=== PATIENT | male | born 1945 | race Caucasian/White ===

== ENCOUNTER 2018-08-25 14:16 | Inpatient (IN) | payer MEDICARE, OTHER ==
[2018-08-25 15:26] LABS: ADD MAN DIFF? NO
[2018-08-25 15:32] LABS: WHITE BLOOD COUNT 11.6 10^3/ul (4.8-10.8)
[2018-08-25 15:32] LABS: ABNORMAL IP MESSAGE 1; BASOPHIL # 0.1 10^3/ul (0.0-0.1); BASOPHILS % 0.7 % (0.0-2.0); EOSINOPHILS # 0.1 10^3/ul (0.0-0.5); EOSINOPHILS % 0.8 % (0.0-7.0); HEMATOCRIT 32.1 % (42.0-52.0); HEMOGLOBIN 10.8 g/dl (14.0-18.0); LYMPHOCYTES # 1.3 10^3/ul (0.8-2.9); MEAN CORPUSCULAR HEMOGLOBIN 36.1 pg (29.0-33.0); MEAN CORPUSCULAR HGB CONC 33.6 g/dl (32.0-37.0); MEAN CORPUSCULAR VOLUME 107.4 fl (82.0-101.0); MEAN PLATELET VOLUME 10.7 fl (7.4-10.4); MONOCYTE # 1.6 10^3/ul (0.3-0.9); MONOCYTES % 13.4 % (0.0-11.0); NEUTROPHIL # 8.5 10^3/ul (1.6-7.5); NEUTROPHILS % 73.6 % (39.0-77.0); PLATELET COUNT 170 10^3/UL (140-415); POSITIVE DIFF @See below; RED BLOOD COUNT 2.99 10^6/ul (4.70-6.10); RED CELL DISTRIBUTION WIDTH 12.7 % (11.5-14.5)
[2018-08-25 15:45] LABS: ADD UMIC YES; UR ASCORBIC ACID NEGATIVE (NEGATIVE); UR BACTERIA FEW /HPF (NONE SEEN); UR BILIRUBIN (Dip) NEGATIVE (NEGATIVE); UR BLOOD (Dip) 1+ mg/dL (NEGATIVE); UR CLARITY TURBID (CLEAR); UR COLOR YELLOW (YELLOW); UR GLUCOSE (Dip) NEGATIVE (NEGATIVE); UR KETONES (Dip) TRACE mg/dL (NEGATIVE); UR LEUKOCYTE ESTERASE (Dip) 3+ Leu/ul (NEGATIVE); UR NITRITE (Dip) NEGATIVE (NEGATIVE); UR NONSQUAMOUS EPITHELIAL CELL 5 /HPF (NONE SEEN); UR RBC 34 /HPF (0-5); UR SPECIFIC GRAVITY (Dip) 1.017 (1.003-1.030); UR TOTAL PROTEIN (Dip) 2+ mg/dl (NEGATIVE); UR UROBILINOGEN (Dip) NEGATIVE (NEGATIVE); UR WBC > 182 /HPF (0-5)
[2018-08-25] MEDS: SOD CHLORIDE 0.9% 1,000 ML IV ×2 (15:49→20:28)
[2018-08-25 15:53] LABS: ALANINE AMINOTRANSFERASE 48 IU/L (13-69); ALBUMIN 4.7 g/dl (3.3-4.9); ALBUMIN/GLOBULIN RATIO 1.51; ALKALINE PHOSPHATASE 116 IU/L (42-121); ANION GAP 13 (5-13); ASPARTATE AMINO TRANSFERASE 52 IU/L (15-46); BLOOD UREA NITROGEN 48 mg/dl (7-20); CALCIUM 9.6 mg/dl (8.4-10.2); CARBON DIOXIDE 19 mmol/L (21-31); CHLORIDE 107 mmol/L (97-110); CREATININE 4.91 mg/dl (0.61-1.24); GLUCOSE 118 mg/dl (70-220); LIPASE 294 U/L (23-300); SODIUM 139 mmol/L (135-144); TOTAL PROTEIN 7.8 g/dl (6.1-8.1)
[2018-08-25 15:54] LABS: CREATINE KINASE 83 IU/L (23-200)
[2018-08-25 16:08] LABS: POTASSIUM 6.7 mmol/L (3.5-5.1)
[2018-08-25] MEDS ORDERED: ACETAMINOPHEN 325 MG TAB PO ×2 (16:30)
[2018-08-25] MEDS ORDERED: NACL 0.9% 3 ML SYG IV (16:30)
[2018-08-25] MEDS ORDERED: ONDANSETRON 4 MG INJ IV ×2 (16:30)
[2018-08-25] MEDS ORDERED: HYDROCODONE/APAP (5/325) TAB PO (16:30)
[2018-08-25] MEDS: NA BICARBONATE 8.4% 50 ML SYG IV (16:46)
[2018-08-25] MEDS: NA POLYST SULFON 15 GM/60 ML BTL PO (16:56)
[2018-08-25] MEDS: AZTREONAM 1 GM/NS (PMX) 50 ML IVPB (16:58)
[2018-08-25] MEDS: ALBUTEROL 0.5% (NEB) 2.5 MG/0.5 ML AMP INH (17:20)
[2018-08-25 17:48] LABS: RETICULOCYTE COUNT # 0.059 X10^6 (0.020-0.110)
[2018-08-25 17:48] LABS: RETICULOCYTE RBC 2.94
[2018-08-25 17:57] LABS: IRON 194 ug/dl (35-150)
[2018-08-25 18:06] LABS: % IRON SATURATION 71 % SAT (22-52); TOTAL IRON BINDING CAPACITY 273 ug/dl (241-421)
[2018-08-25] MEDS: METOPROLOL 25 MG TAB PO (20:26)
[2018-08-25] MEDS: CEFEPIME 1GM/50 ML (PMX) 50 ML IVPB (20:27)
[2018-08-25] MEDS: PATIENT'S OWN MEDICATION PO (21:00)
[2018-08-25 21:03] LABS: LACTIC ACID 1.6 mmol/L (0.5-2.0)
[2018-08-25 21:04] LABS: ANION GAP 15 (5-13); BLOOD UREA NITROGEN 49 mg/dl (7-20); CALCIUM 9.3 mg/dl (8.4-10.2); CARBON DIOXIDE 20 mmol/L (21-31); CHLORIDE 104 mmol/L (97-110); GLUCOSE 124 mg/dl (70-220); POTASSIUM 5.3 mmol/L (3.5-5.1); SODIUM 139 mmol/L (135-144)
[2018-08-25] MEDS: hydrALAzine 20 MG INJ IV (22:01)
[2018-08-25 22:54] LABS: SODIUM,URINE RANDOM 127 mmol/L (30-90)
[2018-08-25 22:56] LABS: CREATININE,URINE RANDOM 65.44 mg/dl (20-370); PROTEIN/CREAT RATIO 1.06 RATIO
[2018-08-26] MEDS: METOPROLOL 50 MG TAB PO (00:45)
[2018-08-26] MEDS: DILTIAZEM (CD) 240 MG CAP PO ×2 (00:45→08:23)
[2018-08-26] MEDS: NA POLYST SULFON 15 GM/60 ML BTL PO (00:46)
[2018-08-26] MEDS: SOD CHLORIDE 0.9% 1,000 ML IV ×2 (02:30→06:14)
[2018-08-26 06:13] LABS: ADD MAN DIFF? NO
[2018-08-26 06:38] LABS: HEMOGLOBIN A1C 5.1 % (0-5.9)
[2018-08-26 06:46] LABS: WHITE BLOOD COUNT 8.1 10^3/ul (4.8-10.8)
[2018-08-26 06:46] LABS: BASOPHIL # 0.1 10^3/ul (0.0-0.1); BASOPHILS % 0.6 % (0.0-2.0); EOSINOPHILS # 0.1 10^3/ul (0.0-0.5); EOSINOPHILS % 0.6 % (0.0-7.0); HEMATOCRIT 28.1 % (42.0-52.0); HEMOGLOBIN 9.7 g/dl (14.0-18.0); LYMPHOCYTES # 0.9 10^3/ul (0.8-2.9); LYMPHOCYTES % 11.6 % (15.0-51.0); MEAN CORPUSCULAR HEMOGLOBIN 36.9 pg (29.0-33.0); MEAN CORPUSCULAR HGB CONC 34.5 g/dl (32.0-37.0); MEAN CORPUSCULAR VOLUME 106.8 fl (82.0-101.0); MEAN PLATELET VOLUME 11.3 fl (7.4-10.4); MONOCYTE # 1.2 10^3/ul (0.3-0.9); MONOCYTES % 14.9 % (0.0-11.0); NEUTROPHIL # 5.8 10^3/ul (1.6-7.5); NEUTROPHILS % 71.7 % (39.0-77.0); PLATELET COUNT 119 10^3/UL (140-415); RED BLOOD COUNT 2.63 10^6/ul (4.70-6.10); RED CELL DISTRIBUTION WIDTH 12.5 % (11.5-14.5)
[2018-08-26 06:55] LABS: INR 1.13; PROTIME 14.7 Sec (11.9-14.9); PT RATIO 1.1
[2018-08-26 06:56] LABS: PARTIAL THROMBOPLASTIN TIME 32.6 Sec (23.0-35.0)
[2018-08-26 07:01] LABS: ALANINE AMINOTRANSFERASE 38 IU/L (13-69); ALBUMIN 4.1 g/dl (3.3-4.9); ALKALINE PHOSPHATASE 89 IU/L (42-121); ANION GAP 13 (5-13); ASPARTATE AMINO TRANSFERASE 32 IU/L (15-46); BILIRUBIN,INDIRECT 0.9 mg/dl (0-1.1); BILIRUBIN,TOTAL 0.9 mg/dl (0.2-1.3); BLOOD UREA NITROGEN 44 mg/dl (7-20); CARBON DIOXIDE 21 mmol/L (21-31); CHLORIDE 107 mmol/L (97-110); CHOLESTEROL 178 mg/dl (100-200); CREATININE 3.92 mg/dl (0.61-1.24); GLUCOSE 111 mg/dl (70-220); HDL CHOLESTEROL 89 mg/dl (31-75); LDL CHOLESTEROL,CALCULATED 72 mg/dl; MAGNESIUM 1.5 mg/dl (1.7-2.5); POTASSIUM 4.8 mmol/L (3.5-5.1); SODIUM 141 mmol/L (135-144); TOTAL PROTEIN 6.5 g/dl (6.1-8.1); TRIGLYCERIDES 83 mg/dl (0-149)
[2018-08-26 07:01] LABS: PHOSPHORUS 3.1 mg/dl (2.5-4.9)
[2018-08-26 07:04] LABS: C-REACTIVE PROTEIN 2.8 mg/dl (0.0-0.9)
[2018-08-26 08:14] LABS: COLLAGEN/EPI > 272 Secs. (51-198)
[2018-08-26 08:15] LABS: COLLAGEN/ADP 127 Secs. (40-147)
[2018-08-26] MEDS: METOPROLOL 25 MG TAB PO ×2 (08:19→21:31)
[2018-08-26] MEDS: FOLIC ACID 1 MG TAB PO (08:19)
[2018-08-26] MEDS: CYANOCOBALAMIN 500 MCG TAB PO (08:19)
[2018-08-26] MEDS: AMLODIPINE 5 MG TAB PO (08:19)
[2018-08-26] MEDS: ASPIRIN (EC) 81 MG TAB PO (08:20)
[2018-08-26] MEDS ORDERED: AMLODIPINE 5 MG TAB PO (09:00)
[2018-08-26] MEDS ORDERED: hydrALAzine 20 MG INJ IV (09:00)
[2018-08-26] MEDS ORDERED: LABETALOL HCL 20MG INJ IV (09:00)
[2018-08-26] MEDS: PANTOPRAZOLE (EC) 40 MG TAB PO (09:47)
[2018-08-26] MEDS: NIFEdipine (XL) 30 MG TAB PO ×2 (11:28→21:31)
[2018-08-26] MEDS: MAGNESIUM SULFATE 3 GM in DEXTROSE 5% 100 ML IVPB (13:42)
[2018-08-26] MEDS: EPOETIN 10000 UNITS/ML (NON ESRD/NON ONCOLOGY) SC (17:16)
[2018-08-26] MEDS ORDERED: METOPROLOL 25 MG TAB PO ×2 (21:00)
[2018-08-26] MEDS: CEFEPIME 1GM/50 ML (PMX) 50 ML IVPB (21:29)
[2018-08-27] MEDS: SOD CHLORIDE 0.9% 1,000 ML IV ×2 (01:00→11:53)
[2018-08-27 05:08] LABS: ADD MAN DIFF? NO
[2018-08-27 05:09] LABS: ABNORMAL IP MESSAGE 1; BASOPHIL # 0.1 10^3/ul (0.0-0.1); BASOPHILS % 0.5 % (0.0-2.0); EOSINOPHILS # 0.1 10^3/ul (0.0-0.5); EOSINOPHILS % 0.6 % (0.0-7.0); HEMATOCRIT 27.5 % (42.0-52.0); HEMOGLOBIN 9.4 g/dl (14.0-18.0); LYMPHOCYTES % 10.2 % (15.0-51.0); MEAN CORPUSCULAR HEMOGLOBIN 36.7 pg (29.0-33.0); MEAN CORPUSCULAR HGB CONC 34.2 g/dl (32.0-37.0); MEAN CORPUSCULAR VOLUME 107.4 fl (82.0-101.0); MEAN PLATELET VOLUME 10.5 fl (7.4-10.4); MONOCYTE # 1.6 10^3/ul (0.3-0.9); MONOCYTES % 16.9 % (0.0-11.0); NEUTROPHIL # 6.7 10^3/ul (1.6-7.5); NEUTROPHILS % 70.6 % (39.0-77.0); PLATELET COUNT 117 10^3/UL (140-415); POSITIVE DIFF @See below; RED BLOOD COUNT 2.56 10^6/ul (4.70-6.10); RED CELL DISTRIBUTION WIDTH 12.7 % (11.5-14.5)
[2018-08-27 05:09] LABS: WHITE BLOOD COUNT 9.5 10^3/ul (4.8-10.8)
[2018-08-27 05:33] LABS: IRON 20 ug/dl (35-150)
[2018-08-27 05:43] LABS: % IRON SATURATION 8 % SAT (22-52); TOTAL IRON BINDING CAPACITY 246 ug/dl (241-421)
[2018-08-27 05:47] LABS: ANION GAP 14 (5-13); BLOOD UREA NITROGEN 35 mg/dl (7-20); CALCIUM 8.8 mg/dl (8.4-10.2); CARBON DIOXIDE 19 mmol/L (21-31); CHLORIDE 105 mmol/L (97-110); CREATININE 3.37 mg/dl (0.61-1.24); GLUCOSE 137 mg/dl (70-220); MAGNESIUM 2.1 mg/dl (1.7-2.5); PHOSPHORUS 2.3 mg/dl (2.5-4.9); POTASSIUM 4.4 mmol/L (3.5-5.1); SODIUM 138 mmol/L (135-144)
[2018-08-27] MEDS: PANTOPRAZOLE (EC) 40 MG TAB PO (06:09)
[2018-08-27] MEDS: CYANOCOBALAMIN 500 MCG TAB PO (08:21)
[2018-08-27] MEDS: ASPIRIN (EC) 81 MG TAB PO (08:21)
[2018-08-27] MEDS: FOLIC ACID 1 MG TAB PO (08:22)
[2018-08-27] MEDS: METOPROLOL 25 MG TAB PO ×2 (08:22→20:17)
[2018-08-27] MEDS: NIFEdipine (XL) 30 MG TAB PO ×2 (08:23→20:17)
[2018-08-27 09:33] LABS: OCCULT BLOOD STOOL POSITIVE (NEGATIVE)
[2018-08-27] MEDS: LEVOFLOXACIN 250 MG TAB PO (13:50)
[2018-08-27] MEDS: SOD FERRIC GLUC COMPLX 125 MG in SOD CHLORIDE 0.9% 100 ML IVPB (13:51)
[2018-08-28 05:30] LABS: ADD MAN DIFF? NO
[2018-08-28 05:40] LABS: WHITE BLOOD COUNT 9.6 10^3/ul (4.8-10.8)
[2018-08-28 05:40] LABS: ABNORMAL IP MESSAGE 1; BASOPHIL # 0.1 10^3/ul (0.0-0.1); BASOPHILS % 0.6 % (0.0-2.0); EOSINOPHILS # 0.1 10^3/ul (0.0-0.5); EOSINOPHILS % 1.5 % (0.0-7.0); HEMATOCRIT 27.5 % (42.0-52.0); HEMOGLOBIN 9.4 g/dl (14.0-18.0); LYMPHOCYTES # 1.4 10^3/ul (0.8-2.9); LYMPHOCYTES % 14.3 % (15.0-51.0); MEAN CORPUSCULAR HEMOGLOBIN 36.6 pg (29.0-33.0); MEAN CORPUSCULAR HGB CONC 34.2 g/dl (32.0-37.0); MONOCYTE # 2.1 10^3/ul (0.3-0.9); MONOCYTES % 21.7 % (0.0-11.0); NEUTROPHIL # 5.8 10^3/ul (1.6-7.5); NEUTROPHILS % 60.3 % (39.0-77.0); PLATELET COUNT 135 10^3/UL (140-415); POSITIVE DIFF @See below; RED BLOOD COUNT 2.57 10^6/ul (4.70-6.10); RED CELL DISTRIBUTION WIDTH 12.6 % (11.5-14.5)
[2018-08-28 06:03] LABS: ANION GAP 13 (5-13); BLOOD UREA NITROGEN 32 mg/dl (7-20); CALCIUM 8.8 mg/dl (8.4-10.2); CARBON DIOXIDE 20 mmol/L (21-31); CHLORIDE 103 mmol/L (97-110); CREATININE 2.86 mg/dl (0.61-1.24); GLUCOSE 108 mg/dl (70-220); MAGNESIUM 1.9 mg/dl (1.7-2.5); PHOSPHORUS 2.5 mg/dl (2.5-4.9); POTASSIUM 4.7 mmol/L (3.5-5.1); SODIUM 136 mmol/L (135-144)
[2018-08-28] MEDS: PANTOPRAZOLE (EC) 40 MG TAB PO (06:10)
[2018-08-28 06:36] LABS: PROSTATE SPECIFIC ANTIGEN 0.9 ng/ml (0.0-4.0)
[2018-08-28] MEDS: SOD CHLORIDE 0.9% 1,000 ML IV (08:43)
[2018-08-28] MEDS: FOLIC ACID 1 MG TAB PO (08:43)
[2018-08-28] MEDS: CYANOCOBALAMIN 500 MCG TAB PO (08:43)
[2018-08-28] MEDS: METOPROLOL 25 MG TAB PO (08:44)
[2018-08-28] MEDS: NIFEdipine (XL) 60 MG TAB PO (08:44)
[2018-08-28] MEDS: ASPIRIN (EC) 81 MG TAB PO (08:45)
[2018-08-28 12:12] LABS: ANA SCREEN NEGATIVE (NEGATIVE)
[2018-08-30 13:36] LABS: ANCA SCREEN NEGATIVE (NEGATIVE); MYELOPEROXIDASE ANTIBODY <1.0 AI; PROTEINASE-3 ANTIBODY <1.0 AI
== END 2018-08-28 12:06 | disposition home or self-care (01) | DRG 683 ==
LOC: E/R 14:16 → 6WM 16:26
DX: N17.9 Acute kidney failure, unspecified (principal); N39.0 Urinary tract infection, site not specified; D50.9 Iron deficiency anemia, unspecified; I12.9 Hypertensive chronic kidney disease with stage 1 through stage 4 chronic kidney disease, or unspecified chronic kidney disease; N18.9 Chronic kidney disease, unspecified; D63.1 Anemia in chronic kidney disease; E87.5 Hyperkalemia; Z79.82 Long term (current) use of aspirin; Z88.0 Allergy status to penicillin; Z87.891 Personal history of nicotine dependence
CPT/HCPCS: 36415; 76700; 80048; 80053; 80061; 81001; 81003; 82270; 82550; 82570; 82607; 82728; 83036; 83540; 83605; 83690; 83735; 84100; 84153; 84154; 84300; 84443; 85025; 85045; 85576; 85610; 85651; 85730; 86021; 86038; 86140; 86320; 86325; 87040; 87086; 89190; 93005; 93976; 94664; 99291-25

== ENCOUNTER 2019-05-07 12:16 | Inpatient (IN) | payer MEDICARE, OTHER ==
[2019-05-07 16:05] LABS: ABNORMAL IP MESSAGE 1; HEMATOCRIT 28.9 % (42.0-52.0); HEMOGLOBIN 8.9 g/dl (14.0-18.0); MEAN CORPUSCULAR HEMOGLOBIN 33.2 pg (29.0-33.0); MEAN CORPUSCULAR HGB CONC 30.8 g/dl (32.0-37.0); MEAN CORPUSCULAR VOLUME 107.8 fl (82.0-101.0); MEAN PLATELET VOLUME 10.5 fl (7.4-10.4); NUCLEATED RED BLOOD CELLS% 1.1 /100WBC (0.0-0.0); PLATELET COUNT 194 10^3/UL (140-415); POSITIVE DIFF @See below; RED BLOOD COUNT 2.68 10^6/ul (4.70-6.10); RED CELL DISTRIBUTION WIDTH 14.6 % (11.5-14.5)
[2019-05-07 16:05] LABS: WHITE BLOOD COUNT 10.5 10^3/ul (4.8-10.8)
[2019-05-07 16:20] LABS: ADD MAN DIFF? YES
[2019-05-07 16:28] LABS: ANION GAP 14 (5-13); BLOOD UREA NITROGEN 18 mg/dl (7-20); CALCIUM 9.7 mg/dl (8.4-10.2); CARBON DIOXIDE 20 mmol/L (21-31); CHLORIDE 102 mmol/L (97-110); CREATININE 2.48 mg/dl (0.61-1.24); GLUCOSE 138 mg/dl (70-220); POTASSIUM 4.5 mmol/L (3.5-5.1); SODIUM 136 mmol/L (135-144)
[2019-05-07 16:52] LABS: ANISOCYTOSIS 1+ (0-0); BAND NEUTROPHILS #M 0.2 10^3/ul (0.0-0.6); BAND NEUTROPHILS % (M) 2 % (0-4); BASOPHIL #M 0.5 10^3/ul (0.0-0.0); BASOPHILS % (M) 5 % (0-2); EOSINOPHILS % (M) 2 % (0-7); ERYTHROBLAST% (NRBC) (M) 2 % (0-0); GIANT THROMBO% (M) 4 % (0-0); LYMPHOCYTES #M 2.3 10^3/ul (0.8-2.9); LYMPHOCYTES % (M) 22 % (15-51); MONOCYTE #M 1.1 10^3/ul (0.3-0.9); MONOCYTES % (M) 11 % (0-11); PLATELET ESTIMATE NORMAL; POIKILOCYTOSIS 1+ (0-0); SEG NEUT #M 6.1 10^3/ul (1.6-7.5); SEGMENTED NEUTROPHILS (M) % 58 % (39-77); SMUDGE%M 1 % (0-0); TEAR DROP CELLS 1+ (0-0)
[2019-05-07 16:55] LABS: INR 1.08; PROTIME 14.1 Sec (11.9-14.9); PT RATIO 1.1
[2019-05-07 16:56] LABS: PARTIAL THROMBOPLASTIN TIME 31.3 Sec (23.0-35.0)
[2019-05-07] MEDS ORDERED: NACL 0.9% 3 ML SYG IV (17:30)
[2019-05-07] MEDS ORDERED: ACETAMINOPHEN 325 MG TAB PO ×2 (17:30)
[2019-05-07] MEDS ORDERED: ONDANSETRON 4 MG INJ IV ×2 (17:30)
[2019-05-07] MEDS ORDERED: HARD FAT/PHENYLEPHRINE SUPP PR (18:00)
[2019-05-07 18:03] LABS: IRON 244 ug/dl (35-150)
[2019-05-07 18:12] LABS: % IRON SATURATION 87 % SAT (22-52); TOTAL IRON BINDING CAPACITY 280 ug/dl (241-421)
[2019-05-07] MEDS: DEXTROSE 5%-0.45% NACL 1,000 ML IV (20:28)
[2019-05-07] MEDS: METOPROLOL (XL) 25 MG TAB PO (20:30)
[2019-05-08 05:06] LABS: ADD MAN DIFF? NO
[2019-05-08 05:15] LABS: WHITE BLOOD COUNT 7.9 10^3/ul (4.8-10.8)
[2019-05-08 05:15] LABS: BASOPHIL # 0.1 10^3/ul (0.0-0.1); BASOPHILS % 0.8 % (0.0-2.0); EOSINOPHILS # 0.3 10^3/ul (0.0-0.5); EOSINOPHILS % 3.3 % (0.0-7.0); HEMATOCRIT 25.3 % (42.0-52.0); HEMOGLOBIN 7.9 g/dl (14.0-18.0); LYMPHOCYTES # 1.6 10^3/ul (0.8-2.9); LYMPHOCYTES % 20.2 % (15.0-51.0); MEAN CORPUSCULAR HEMOGLOBIN 33.9 pg (29.0-33.0); MEAN CORPUSCULAR HGB CONC 31.2 g/dl (32.0-37.0); MEAN CORPUSCULAR VOLUME 108.6 fl (82.0-101.0); MEAN PLATELET VOLUME 10.9 fl (7.4-10.4); MONOCYTE # 1.5 10^3/ul (0.3-0.9); MONOCYTES % 18.3 % (0.0-11.0); NEUTROPHIL # 4.4 10^3/ul (1.6-7.5); NEUTROPHILS % 55.3 % (39.0-77.0); NUCLEATED RED BLOOD CELLS% 0.5 /100WBC (0.0-0.0); PLATELET COUNT 153 10^3/UL (140-415); RED BLOOD COUNT 2.33 10^6/ul (4.70-6.10); RED CELL DISTRIBUTION WIDTH 14.7 % (11.5-14.5)
[2019-05-08] MEDS: PANTOPRAZOLE 40 MG INJ IV (05:51)
[2019-05-08 05:52] LABS: ANION GAP 6 (5-13); BLOOD UREA NITROGEN 16 mg/dl (7-20); CALCIUM 9.4 mg/dl (8.4-10.2); CARBON DIOXIDE 27 mmol/L (21-31); CHLORIDE 102 mmol/L (97-110); CREATININE 2.06 mg/dl (0.61-1.24); GLUCOSE 120 mg/dl (70-220); MAGNESIUM 1.7 mg/dl (1.7-2.5); POTASSIUM 4.1 mmol/L (3.5-5.1); SODIUM 135 mmol/L (135-144)
[2019-05-08] MEDS: DEXTROSE 5%-0.45% NACL 1,000 ML IV ×2 (06:35→09:51)
[2019-05-08] MEDS: NIFEdipine (XL) 90 MG TAB PO (08:13)
[2019-05-08] MEDS: MULTIVITAMINS THERAPEUTIC TAB PO (08:13)
[2019-05-08] MEDS: FOLIC ACID 0.4 MG TAB PO (08:13)
[2019-05-08] MEDS: CYANOCOBALAMIN 500 MCG TAB PO (08:13)
[2019-05-08] MEDS: METOPROLOL (XL) 25 MG TAB PO ×2 (08:15→20:44)
[2019-05-08] MEDS: POLYETHYLENE GLYCOL 17 GM PACKET PO (08:16)
[2019-05-08] MEDS ORDERED: NON-FORMULARY/PATIENT OWN MED (Omeprazole* 20 MG) PO (09:00)
[2019-05-08] MEDS ORDERED: hydrALAzine 20 MG INJ IV (09:00)
[2019-05-08 13:46] LABS: HEMATOCRIT 27.8 % (42.0-52.0); HEMOGLOBIN 8.6 g/dl (14.0-18.0)
[2019-05-08 18:17] LABS: ADD UMIC YES; UR ASCORBIC ACID NEGATIVE (NEGATIVE); UR BACTERIA MODERATE /HPF (NONE SEEN); UR BILIRUBIN (Dip) NEGATIVE (NEGATIVE); UR BLOOD (Dip) NEGATIVE (NEGATIVE); UR CLARITY CLOUDY (CLEAR); UR COLOR AMBER (YELLOW); UR GLUCOSE (Dip) NEGATIVE (NEGATIVE); UR KETONES (Dip) NEGATIVE (NEGATIVE); UR LEUKOCYTE ESTERASE (Dip) 3+ Leu/ul (NEGATIVE); UR MUCUS FEW /HPF (NONE SEEN); UR NITRITE (Dip) NEGATIVE (NEGATIVE); UR RBC 3 /HPF (0-5); UR SPECIFIC GRAVITY (Dip) 1.011 (1.003-1.030); UR SQUAMOUS EPITHELIAL CELL FEW /HPF (FEW); UR TOTAL PROTEIN (Dip) 1+ mg/dl (NEGATIVE); UR UROBILINOGEN (Dip) NEGATIVE (NEGATIVE); UR WBC 88 /HPF (0-5)
[2019-05-08 18:20] LABS: CREATININE,URINE RANDOM 135.16 mg/dl (20-370)
[2019-05-08] MEDS: EPOETIN ALFA-EPBX (NON-ESRD 10,000 UNIT/ML VIAL SC (18:54)
[2019-05-09] MEDS: PANTOPRAZOLE 40 MG INJ IV (05:58)
[2019-05-09 06:32] LABS: ADD MAN DIFF? NO
[2019-05-09 06:38] LABS: BASOPHIL # 0.1 10^3/ul (0.0-0.1); BASOPHILS % 0.9 % (0.0-2.0); EOSINOPHILS # 0.3 10^3/ul (0.0-0.5); EOSINOPHILS % 4.3 % (0.0-7.0); HEMATOCRIT 25.1 % (42.0-52.0); HEMOGLOBIN 7.8 g/dl (14.0-18.0); LYMPHOCYTES # 1.7 10^3/ul (0.8-2.9); LYMPHOCYTES % 21.7 % (15.0-51.0); MEAN CORPUSCULAR HEMOGLOBIN 33.8 pg (29.0-33.0); MEAN CORPUSCULAR HGB CONC 31.1 g/dl (32.0-37.0); MEAN CORPUSCULAR VOLUME 108.7 fl (82.0-101.0); MEAN PLATELET VOLUME 10.9 fl (7.4-10.4); MONOCYTE # 1.5 10^3/ul (0.3-0.9); MONOCYTES % 18.8 % (0.0-11.0); NEUTROPHIL # 4.1 10^3/ul (1.6-7.5); NEUTROPHILS % 52.1 % (39.0-77.0); NUCLEATED RED BLOOD CELLS% 0.5 /100WBC (0.0-0.0); PLATELET COUNT 157 10^3/UL (140-415); RED BLOOD COUNT 2.31 10^6/ul (4.70-6.10); RED CELL DISTRIBUTION WIDTH 15.9 % (11.5-14.5)
[2019-05-09 06:38] LABS: WHITE BLOOD COUNT 7.8 10^3/ul (4.8-10.8)
[2019-05-09 07:14] LABS: ANION GAP 5 (5-13); BLOOD UREA NITROGEN 14 mg/dl (7-20); CALCIUM 9.1 mg/dl (8.4-10.2); CARBON DIOXIDE 27 mmol/L (21-31); CHLORIDE 103 mmol/L (97-110); CREATININE 2.39 mg/dl (0.61-1.24); GLUCOSE 106 mg/dl (70-220); MAGNESIUM 1.6 mg/dl (1.7-2.5); PHOSPHORUS 2.4 mg/dl (2.5-4.9); POTASSIUM 4.6 mmol/L (3.5-5.1); SODIUM 135 mmol/L (135-144)
[2019-05-09] MEDS: POLYETHYLENE GLYCOL 17 GM PACKET PO (08:30)
[2019-05-09] MEDS: CYANOCOBALAMIN 500 MCG TAB PO (08:30)
[2019-05-09] MEDS: FOLIC ACID 0.4 MG TAB PO (08:30)
[2019-05-09] MEDS: METOPROLOL (XL) 25 MG TAB PO (08:32)
[2019-05-09] MEDS: MULTIVITAMINS THERAPEUTIC TAB PO (08:34)
[2019-05-09] MEDS: NIFEdipine (XL) 90 MG TAB PO (08:34)
[2019-05-09] MEDS: LABETALOL 100 MG TAB PO ×2 (09:54→21:00)
[2019-05-09] MEDS: DEXTROSE 5%-0.45% NACL 1,000 ML IV (09:55)
[2019-05-09] MEDS: MAGNESIUM SULFATE 2 GM/50 ML 50 ML IVPB (09:55)
[2019-05-09] MEDS: MAGNESIUM OXIDE 400 MG TAB PO (09:55)
[2019-05-09] MEDS: SOD FERRIC GLUC COMPLX 125 MG in SOD CHLORIDE 0.9% 100 ML IVPB (12:34)
[2019-05-09 12:59] LABS: OCCULT BLOOD STOOL NEGATIVE (NEGATIVE)
[2019-05-09 15:15] LABS: SODIUM,URINE RANDOM 93 mmol/L (30-90)
[2019-05-10 05:23] LABS: ADD MAN DIFF? NO
[2019-05-10] MEDS: DEXTROSE 5%-0.45% NACL 1,000 ML IV (05:30)
[2019-05-10 05:32] LABS: RETICULOCYTE RBC 2.22
[2019-05-10 05:32] LABS: RETICULOCYTE COUNT % 6.3 % (0.5-1.5)
[2019-05-10 05:33] LABS: BASOPHIL # 0.1 10^3/ul (0.0-0.1); BASOPHILS % 0.9 % (0.0-2.0); EOSINOPHILS # 0.3 10^3/ul (0.0-0.5); EOSINOPHILS % 4.1 % (0.0-7.0); HEMATOCRIT 24.2 % (42.0-52.0); HEMOGLOBIN 7.5 g/dl (14.0-18.0); LYMPHOCYTES # 1.4 10^3/ul (0.8-2.9); LYMPHOCYTES % 20.6 % (15.0-51.0); MEAN CORPUSCULAR HEMOGLOBIN 33.2 pg (29.0-33.0); MEAN CORPUSCULAR VOLUME 107.1 fl (82.0-101.0); MONOCYTE # 1.3 10^3/ul (0.3-0.9); MONOCYTES % 19.5 % (0.0-11.0); NEUTROPHIL # 3.6 10^3/ul (1.6-7.5); NEUTROPHILS % 52.4 % (39.0-77.0); NUCLEATED RED BLOOD CELLS% 0.4 /100WBC (0.0-0.0); PLATELET COUNT 152 10^3/UL (140-415); RED BLOOD COUNT 2.26 10^6/ul (4.70-6.10); RED CELL DISTRIBUTION WIDTH 16.5 % (11.5-14.5)
[2019-05-10 05:33] LABS: WHITE BLOOD COUNT 6.8 10^3/ul (4.8-10.8)
[2019-05-10 05:54] LABS: ANION GAP 7 (5-13); BLOOD UREA NITROGEN 15 mg/dl (7-20); CALCIUM 8.9 mg/dl (8.4-10.2); CARBON DIOXIDE 24 mmol/L (21-31); CHLORIDE 103 mmol/L (97-110); CREATININE 2.41 mg/dl (0.61-1.24); GLUCOSE 113 mg/dl (70-220); MAGNESIUM 2.2 mg/dl (1.7-2.5); PHOSPHORUS 3.2 mg/dl (2.5-4.9); POTASSIUM 4.2 mmol/L (3.5-5.1); SODIUM 134 mmol/L (135-144)
[2019-05-10] MEDS: PANTOPRAZOLE 40 MG INJ IV (05:57)
[2019-05-10] MEDS: LABETALOL 100 MG TAB PO ×2 (09:00→21:00)
[2019-05-10] MEDS: NIFEdipine (XL) 90 MG TAB PO (09:00)
[2019-05-10] MEDS: CYANOCOBALAMIN 500 MCG TAB PO (10:22)
[2019-05-10] MEDS: FOLIC ACID 0.4 MG TAB PO (10:22)
[2019-05-10] MEDS: MULTIVITAMINS THERAPEUTIC TAB PO (10:23)
[2019-05-10] MEDS: POLYETHYLENE GLYCOL 17 GM PACKET PO (10:24)
[2019-05-10] MEDS: LOSARTAN 50 MG TAB PO ×2 (11:27→21:53)
[2019-05-10 14:19] LABS: IMMEDIATE SPIN CROSSMATCH 1 3
[2019-05-10] MEDS: SOD FERRIC GLUC COMPLX 125 MG in SOD CHLORIDE 0.9% 100 ML IVPB (16:54)
[2019-05-10] MEDS: EPOETIN ALFA-EPBX (NON-ESRD 10,000 UNIT/ML VIAL SC (18:36)
[2019-05-11 06:21] LABS: ADD MAN DIFF? NO
[2019-05-11 06:25] LABS: BASOPHIL # 0.1 10^3/ul (0.0-0.1); EOSINOPHILS # 0.2 10^3/ul (0.0-0.5); EOSINOPHILS % 3.6 % (0.0-7.0); HEMATOCRIT 31.8 % (42.0-52.0); HEMOGLOBIN 10.4 g/dl (14.0-18.0); LYMPHOCYTES # 1.3 10^3/ul (0.8-2.9); LYMPHOCYTES % 20.6 % (15.0-51.0); MEAN CORPUSCULAR HEMOGLOBIN 33.3 pg (29.0-33.0); MEAN CORPUSCULAR HGB CONC 32.7 g/dl (32.0-37.0); MEAN CORPUSCULAR VOLUME 101.9 fl (82.0-101.0); MEAN PLATELET VOLUME 10.8 fl (7.4-10.4); MONOCYTE # 1.3 10^3/ul (0.3-0.9); MONOCYTES % 21.1 % (0.0-11.0); NEUTROPHIL # 3.1 10^3/ul (1.6-7.5); NEUTROPHILS % 50.7 % (39.0-77.0); NUCLEATED RED BLOOD CELLS% 0.5 /100WBC (0.0-0.0); PLATELET COUNT 140 10^3/UL (140-415); RED BLOOD COUNT 3.12 10^6/ul (4.70-6.10); RED CELL DISTRIBUTION WIDTH 19.7 % (11.5-14.5)
[2019-05-11 06:25] LABS: WHITE BLOOD COUNT 6.1 10^3/ul (4.8-10.8)
[2019-05-11] MEDS: PANTOPRAZOLE 40 MG INJ IV (06:27)
[2019-05-11 07:00] LABS: ANION GAP 8 (5-13); BLOOD UREA NITROGEN 14 mg/dl (7-20); CALCIUM 8.9 mg/dl (8.4-10.2); CARBON DIOXIDE 23 mmol/L (21-31); CHLORIDE 105 mmol/L (97-110); CREATININE 2.28 mg/dl (0.61-1.24); GLUCOSE 107 mg/dl (70-220); MAGNESIUM 2.1 mg/dl (1.7-2.5); PHOSPHORUS 3.2 mg/dl (2.5-4.9); POTASSIUM 4.4 mmol/L (3.5-5.1); SODIUM 136 mmol/L (135-144)
[2019-05-11] MEDS: MULTIVITAMINS THERAPEUTIC TAB PO (09:00)
[2019-05-11] MEDS: POLYETHYLENE GLYCOL 17 GM PACKET PO (09:00)
[2019-05-11] MEDS: FOLIC ACID 0.4 MG TAB PO (09:00)
[2019-05-11] MEDS: CYANOCOBALAMIN 500 MCG TAB PO (09:00)
[2019-05-11] MEDS: NIFEdipine (XL) 90 MG TAB PO (09:02)
[2019-05-11] MEDS: LOSARTAN 50 MG TAB PO (09:03)
[2019-05-11] MEDS: LABETALOL 100 MG TAB PO (09:05)
[2019-05-11] MEDS: SOD FERRIC GLUC COMPLX 125 MG in SOD CHLORIDE 0.9% 100 ML IVPB (13:32)
[2019-05-11] MEDS ORDERED: LIDOCAINE 1% (MPF) 5 ML VIAL ×2 (14:22)
[2019-05-11] MEDS ORDERED: MIDAZOLAM 1 MG/ML 2 ML INJ (14:41)
[2019-05-11] MEDS ORDERED: FENTAnyl 50 MCG/ML VIAL (14:41)
== END 2019-05-11 16:50 | disposition home or self-care (01) | DRG 394 ==
LOC: E/R 12:16 → 2NE 17:08
PROC: 30233N1 Transfusion of Nonautologous Red Blood Cells into Peripheral Vein, Percutaneous Approach (ICD-10-PCS; 2019-05-10)
PROC: 07DR3ZX Extraction of Iliac Bone Marrow, Percutaneous Approach, Diagnostic (ICD-10-PCS; principal; 2019-05-11)
DX: K64.9 Unspecified hemorrhoids (principal); D62 Acute posthemorrhagic anemia; N17.9 Acute kidney failure, unspecified; I12.9 Hypertensive chronic kidney disease with stage 1 through stage 4 chronic kidney disease, or unspecified chronic kidney disease; N18.9 Chronic kidney disease, unspecified
CPT/HCPCS: 36415; 36430; 76700; 77012; 78278; 80048; 81001; 81003; 82270; 82570; 82728; 83540; 83735; 84100; 84300; 85014; 85018; 85025; 85045; 85610; 85730; 86850; 86900; 86901; 86920; 88305; 88311; 88313; 97110; 97116; 97162; 97167; 97530; 99285-25